=== PATIENT | female | born 1965 | race Caucasian/White ===

== ENCOUNTER 2018-09-22 10:09 | Emergency (ER) | payer BC | END 2018-09-22 13:23 | disposition home or self-care (01) | LOC: FER 10:09 ==

== ENCOUNTER 2020-12-13 02:17 | Emergency (ER) | payer BC ==
[2020-12-13 02:23] VITALS: BP 153/91; PULSE 78; TEMP 98.8; BMI 30.1
[2020-12-13] MEDS ORDERED: DIPHTH,PERTUSS(ACELL),TET 0.5 ML DISP.SYRIN IM ONE ×2 (02:23→02:24)
[2020-12-13] MEDS ORDERED: AMOX TR/POT CLAV 875MG/125MG TABLETS (FP) ONE (02:24)
[2020-12-13] MEDS ORDERED: AMOX TR/POT CLAV 875MG/125MG TABLETS (FP) PO ONE (02:32)
== END 2020-12-13 02:35 | disposition home or self-care (01) ==
LOC: FER 02:17
PROC: 3E0234Z Introduction of Serum, Toxoid and Vaccine into Muscle, Percutaneous Approach (ICD-10-PCS; principal; 2020-12-13)
DX: S41.152A Open bite of left upper arm, initial encounter (principal); W55.01XA Bitten by cat, initial encounter
CPT/HCPCS: 90715; 99283-25

== ENCOUNTER 2022-11-26 14:25 | Emergency (ER) | payer BC ==
[2022-11-26] MEDS ORDERED: predniSONE 20 MG TABLET (UD) PO ONE (14:37)
[2022-11-26] MEDS ORDERED: diphenhydrAMINE HCL 50 MG CAPSULE PO ONE (14:37)
[2022-11-26] MEDS ORDERED: FAMOTIDINE 10 MG TABLET PO ONE (14:39)
[2022-11-26 14:41] VITALS: BP 152/84; PULSE 90; RESP 16; TEMP 99; BMI 30.1
[2022-11-26] MEDS ORDERED: FAMOTIDINE 20 MG TABLET ONE (14:50)
[2022-11-26] MEDS ORDERED: diphenhydrAMINE HCL 50 MG CAPSULE ONE (14:50)
[2022-11-26] MEDS ORDERED: predniSONE 20 MG TABLET (UD) ONE (14:50)
== END 2022-11-26 16:11 | disposition home or self-care (01) ==
LOC: FER 14:25 → SUPCPDRO 14:25 → FER 16:11
DX: S81.852A Open bite, left lower leg, initial encounter (principal); R22.42 Localized swelling, mass and lump, left lower limb; L29.9 Pruritus, unspecified; W57.XXXA Bitten or stung by nonvenomous insect and other nonvenomous arthropods, initial encounter
CPT/HCPCS: 99283-25